=== PATIENT | female | born 1975 | race Caucasian/White ===

== ENCOUNTER 2019-03-09 13:37 | Emergency (ER) | payer OTHER ==
[2019-03-09] MEDS ORDERED: EPINEPHRINE 1 MG/ML 1 ML VIAL IM ONE (13:43)
[2019-03-09] MEDS ORDERED: Famotidine IV* 10 MG/ML 2 ML (20 mg) IV SLOW PU ONE (13:44)
[2019-03-09] MEDS ORDERED: NS 0.9% 1000 ML** 1,000 ML IV ONE (13:44)
[2019-03-09] MEDS ORDERED: methylPREDNISolone 125 MG* 2 ML VIAL IV ONE (13:44)
[2019-03-09 13:46] VITALS: BP 139/61
--- NOTE | 2019-03-09 13:46 | UC ---
Allergic Reaction HPI - HPI Summary HPI Summary: Patient is a 44-year-old female here with a possible allergic reaction. Patient was stung by a wasp one hour ago. Since then, patient's had worsening rash is itchy on her legs and face. Patient has some difficulty breathing. Patient has no sensation of her throat closing, vomiting, diarrhea. Patient of an anaphylaxis before. medications reviewed - History of Current Complaint Stated Complaint: ALLERGIC REACTION Time Seen by Provider: 03/09/19 13:43 Hx Obtained From: Patient Onset/Duration: Sudden Onset - Allergies/Home Medications Allergies/Adverse Reactions: Allergies Allergy/AdvReac Type Severity Reaction Status Date / Time erythromycin base Allergy Nausea Verified 03/09/19 13:47 bandaid Allergy Rash Uncoded 03/09/19 13:47 wasp Allergy Rash Uncoded 03/09/19 13:47 Home Medications: Home Medications Magnesium Oxide [Magnesium] 500 mg PO DAILY 03/09/19 [History Confirmed 03/09/19 ] Nortriptyline CAP* [Pamelor CAP*] 50 mg PO BEDTIME 03/09/19 [History Confirmed 03/09/19] Ondansetron ODT TAB* [Zofran 4 MG Odt TAB*] 8 mg PO Q6H PRN 03/09/19 [History Confirmed 03/09/19] Propranolol TAB* [Inderal TAB*] 220 mg PO BID 03/09/19 [History Confirmed ] Temazepam 7.5 mg Cap (Nf) [Temazepam] 5 mg PO DAILY PRN 03/09/19 [History Confirmed 03/09/19] PMH/Surg Hx/FS Hx/Imm Hx Previously Healthy: Yes - Family History Known Family History: Positive: Non-Contributory - Social History Occupation: Employed Full-time Alcohol Use: None Substance Use Type: None Smoking Status (MU): Never Smoked Tobacco Review of Systems All Other Systems Reviewed And Are Negative: Yes Constitutional: Negative: Fever, Chills ENT: Negative: Sore Throat, Nasal Discharge Respiratory: Positive: Shortness Of Breath Cardiovascular: Negative: Palpitations, Chest Pain Gastrointestinal: Negative: Abdominal Pain, Vomiting, Diarrhea Physical Exam - Summary Physical Exam Summary: Vital Signs Reviewed: Yes A+Ox3, no distress Eyes: Conjunctiva Clear, PERRL. EOM intact and full ENT: Hearing grossly normal TM x 2 clear, moist, uvula midline, no exudate, no erythema Neck: Positive: Supple. No stridor Respiratory: Positive: No respiratory distress, No accessory muscle use + CTA throughout no w/r Cardiovascular: RRR nl s1, s2 no m/r CBT <2 sec abd soft + BS nt/nd no guarding, no distension Musculoskeletal Exam: SOTELO x 4 without difficulty Strength Intact, ROM Intact Neurological: Positive: Alert, + sensation throughout Psychological: Positive: Normal Response To Family Skin: Diffuse urticaria worse on the right lower extremity and the face Triage Information Reviewed: Yes Allergic Reaction Course/Dx - Course Course Of Treatment: Patient is here with anaphylaxis following a wasp sting. Patient had diffuse urticaria and was complaining of shortness of breath. Patient was given epinephrine here and [facility] is called. Patient was given Pepcid, Solu-Medrol, IV fluids while the ambulance arrived. Patient was taken to the ED for further management - Differential Dx/Diagnosis Differential Diagnosis/HQI/PQRI: Airway Obstruction, Anaphylaxis, Angioedema, Local Allergic Reaction, Urticaria Provider Diagnosis: Anaphylaxis Discharge - Sign-Out/Discharge Documenting (check all that apply): Patient Departure All imaging exams completed and their final reports reviewed: No Studies - Discharge Plan Condition: Stable Disposition: TRANS HIGHER LVL OF CARE FAC Referrals: No Primary Care Phys,NOPCP [Primary Care Provider] - - Billing Disposition and Condition Condition: STABLE Disposition: Trans Higher Lvl of Care Fac
== END 2019-03-09 14:00 | disposition short-term general hospital (02) ==
LOC: UCEAST 13:37
DX: T63.441A Toxic effect of venom of bees, accidental (unintentional), initial encounter (principal); T78.2XXA Anaphylactic shock, unspecified, initial encounter; Y92.9 Unspecified place or not applicable
CPT/HCPCS: 96360; 96361; 96372; 96374; 96376; 99213; G0463; J2930

== ENCOUNTER 2019-03-09 14:22 | Emergency (ER) | payer OTHER ==
[2019-03-09] MEDS ORDERED: NS 0.9% 1000 ML** 1,000 ML IV ONE (14:44)
[2019-03-09] MEDS ORDERED: diPHENhydraMINE IV* 50 MG/ML 1 ml VIAL (BENADRYL) IV ONE (14:44)
[2019-03-09] MEDS ORDERED: Ketorolac INJ* 30 MG/ML 1 ML VIAL IV PUSH ONE (14:52)
[2019-03-09 15:40] VITALS: BP 115/65
--- NOTE | 2019-03-09 16:51 | ED ---
Allergic Reaction/Systemic - HPI Summary HPI Summary: 44 year old F patient brought to [facility] by EMS with a chief complaint of allergic reaction to bee sting one hour ago today, 03/09/19. Patient reports she was jogging when she got stung on her right lower leg by a wasp. Patient reports wheezing, sore throat, and itching when she presented to Urgent Care who gave her Decadron, Epinephrine injection, and Benadryl. Patient reports to feel better now. Pt denies any fever, chills, erythema of eyes, CP, SOB, cough, abdominal pain, N /V, dysuria, hematuria, myalgia, edema, rash, or dizziness. - History of Current Complaint Chief Complaint: EDAllergicReaction Time Seen by Provider: 03/09/19 14:28 Hx Obtained From: Patient Hx Last Menstrual Period: IUD Pain Intensity: 2 Aggravating Factor(s): Nothing Alleviating Factor(s): OTC Meds - Benadryl & decadron, Epinephrine Associated Signs And Symptoms: Positive: Cough Wheezing, Other: - reports sore throat and itching; Pt denies any fever, chills, erythema of eyes, SOB, dysuria, hematuria, myalgia, edema, or dizziness.. Negative: Abdominal Pain, Chest Pain, Nausea, Rash, Vomiting - Allergies/Home Medications Allergies/Adverse Reactions: Allergies Allergy/AdvReac Type Severity Reaction Status Date / Time erythromycin base Allergy Nausea Verified 03/09/19 13:47 bandaid Allergy Rash Uncoded 03/09/19 13:47 wasp Allergy Rash Uncoded 03/09/19 13:47 PMH/Surg Hx/FS Hx/Imm Hx - Surgical History Surgery Procedure, Year, and Place: [facility] Infectious Disease History: No Infectious Disease History: Denies: Traveled Outside the [place] in Last 30 Days - Social History Alcohol Use: Occasionally Hx Substance Use: No Substance Use Type: Reports: None Hx Tobacco Use: No Smoking Status (MU): Never Smoked Tobacco Review of Systems Negative: Fever Negative: Erythema Positive: Sore Throat Negative: Chest Pain Positive: Other - wheezing. Negative: Shortness Of Breath, Cough Negative: Abdominal Pain, Vomiting, Nausea Negative: dysuria, hematuria Negative: Myalgia, Edema Positive: Other - itchy Neurological: Other - denies dizziness All Other Systems Reviewed And Are Negative: Yes Physical Exam - Summary Physical Exam Summary: Constitutional: Well-developed, Well-nourished, Alert. (-) Distressed Skin: silver dollar size erythema over on right lower leg, no strider, and no angioedema HENT: Normocephalic; Atraumatic Eyes: Conjunctiva normal Neck: Musculoskeletal ROM normal neck. (-) JVD, (-) Stridor, (-) Tracheal deviation Cardio: Rhythm regular, rate normal, Heart sounds normal; Intact distal pulses; The pedal pulses are 2+ and symmetric. Radial pulses are 2+ and symmetric. (-) Murmur Pulmonary/Chest wall: Effort normal. (-) Respiratory distress, (-) Wheezes, (-) Rales Abd: Soft, (-) tenderness, (-) Distension, (-) Guarding, (-) Rebound Musculoskeletal: (-) Edema Lymph: (-) Cervical adenopathy Neuro: Alert, Oriented x3 Psych: Mood and affect Normal Triage Information Reviewed: Yes Vital Signs On Initial Exam: Initial Vitals Temp Pulse Resp BP Pulse Ox 97.6 F 68 18 138/87 97 03/09/19 14:25 03/09/19 14:25 03/09/19 14:25 03/09/19 14:25 03/09/19 14:25 Vital Signs Reviewed: Yes Diagnostics - Vital Signs Vital Signs Temp Pulse Resp BP Pulse Ox 03/09/19 15:29 69 16 115/65 97 03/09/19 15:00 68 22 98 03/09/19 14:29 68 138/87 99 03/09/19 14:28 65 96 03/09/19 14:25 97.6 F 68 18 138/87 97 - Laboratory Lab Statement: Any lab studies that have been ordered have been reviewed, and results considered in the medical decision making process. Allergic Reaction Course/Dx - Course Course Of Treatment: 44 year old F patient brought to [facility] by EMS with a chief complaint of bee sting one hour ago today, 03/09/19. Patient reports she was jogging when she got stung on her right lower leg by a wasp. Patient reports wheezing, sore throat, and itching when she presented to Urgent Care who gave her Decadron, Epinephrine injection, and Benadryl. Patient reports to feel better now. Pt denies any fever, chills, erythema of eyes, CP, SOB, cough, abdominal pain, N/V, dysuria, hematuria, myalgia, edema, rash, or dizziness. Physical exam reveals no abnormalities except for silver dollar size erythema over on right lower leg, no strider, and no angioedema. Patient was given 25 mg diphenhydramine hcl IV, 30 mg ketorolac tromethamine IV, and saline in the ED. Physician discusses discharge with patient whoa greed to discharge. Patient will be discharged and will follow up with primary care provider within 2-3 days. - Diagnoses Provider Diagnoses: Anaphylactic reaction Discharge - Sign-Out/Discharge Documenting (check all that apply): Patient Departure - discharge Patient Received Moderate/Deep Sedation with Procedure: No - Discharge Plan Condition: Stable Disposition: HOME Prescriptions: EPINEPHrine [Epipen 2-Nikunj] 0.3 mg IM ONCE PRN #2 inj PRN Reason: Allergy Symptoms predniSONE TAB* [Deltasone 20 MG TAB*] 20 mg PO DAILY #3 tab Patient Education Materials: Anaphylaxis (ED) Referrals: [facility] [Outside] - 3 Days Additional Instructions: Follow up with primary care provider within 2-3 days. Use Epi pen if another anaphylactic reaction occurs. Return to ED for any new or worsening symptoms. - Attestation Statements Document Initiated by Scribe: Yes Documenting Scribe: Ellie Morales Provider For Whom Scribe is Documenting (Include Credential): Dr. Haroon Gonzalez MD Scribe Attestation: Ellie Fair, scribed for Dr. Haroon Gonzalez MD on 03/10/19 at 0106. Status of Scribe Document: Ready
== END 2019-03-09 17:04 | disposition home or self-care (01) ==
LOC: ED 14:22
DX: T63.441A Toxic effect of venom of bees, accidental (unintentional), initial encounter (principal); T78.2XXA Anaphylactic shock, unspecified, initial encounter; X58.XXXA Exposure to other specified factors, initial encounter; Z88.1 Allergy status to other antibiotic agents; Z91.030 Bee allergy status; Z91.048 Other nonmedicinal substance allergy status
CPT/HCPCS: 96361; 96374; 96375; 99282; J1200; J1885

== ENCOUNTER 2019-07-13 13:44 | Emergency (ER) | payer OTHER ==
--- NOTE | 2019-07-13 14:22 | ED ---
Throat Pain/Nasal Congestion - HPI Summary HPI Summary: This pt is a 44 y/o female, with PMHx eosinophilic esophagitis, presenting to [facility] via EMS for inability to swallow since midnight after trying to take a pill. Pt reports she was dx with eosinophilic esophagitis 10 years ago that was found as an incidental finding. Pt states for the past few months she has been getting food stuck in her throat whenever she tried to eat something. She notes she would produce mucous, then she would vomit and feel better afterwards. She reports last night she was trying to take a pill, that was bigger than her usual pills, when it got stuck in her throat while swallowing. She states she has been unable to swallow since then and has not had any PO fluids. Pt has been spitting up her secretions in a bottle. Denies fever, chest pain, SOB, nausea, vomiting. PMHx: migraine, vertigo. - History of Current Complaint Chief Complaint: EDThroatPain Time Seen by Provider: 07/13/19 14:11 Hx Obtained From: Patient Onset/Duration: Lasting Hours, Still Present Severity: Moderate Associated Signs And Symptoms: Positive: Dysphagia Cough: None Related History: Other (Noted In Comments) - hx of eosinophilic esophagitis - Allergies/Home Medications Allergies/Adverse Reactions: Allergies Allergy/AdvReac Type Severity Reaction Status Date / Time banana Allergy Swelling Verified 07/13/19 14:43 Of Face,Lips,& Throat erythromycin base Allergy Nausea Verified 07/13/19 14:43 nickel Allergy Rash Verified 07/13/19 14:43 bandaid Allergy Rash Uncoded 07/13/19 14:43 wasp Allergy Rash Uncoded 07/13/19 14:43 Home Medications: Home Medications Melatonin (NF) 3 mg PO BEDTIME PRN 07/13/19 [History Confirmed 07/13/19] Ondansetron ODT TAB* [Zofran 4 MG Odt TAB*] 8 mg PO DAILY 07/13/19 [History Confirmed 07/13/19] Propranolol LA CAP* [Inderal LA CAP*] 160 mg PO DAILY 07/13/19 [History Confirmed 07/13/19] Rizatriptan (NF) [Maxalt-Solution Maker (NF)] 10 mg PO ONCE PRN 07/13/19 [History Confirmed 07/13/19] PMH/Surg Hx/FS Hx/Imm Hx GI History: Reports: Other GI Disorders - eosinophilic esophagitis Neurological History: Reports: Hx Migraine, Other Neuro Impairments/Disorders - vertigo - Surgical History Surgical History: Yes Surgery Procedure, Year, and Place: lap cholecystectomy Infectious Disease History: No Infectious Disease History: Denies: Traveled Outside the [place] in Last 30 Days - Family History Known Family History: Negative: Cardiac Disease, Hypertension, Diabetes - Social History Alcohol Use: Occasionally Hx Substance Use: No Substance Use Type: Reports: None Hx Tobacco Use: No Smoking Status (MU): Never Smoked Tobacco Review of Systems Negative: Fever ENT: Other - POSITIVE: dysphagia, spitting up secretions Negative: Chest Pain Negative: Shortness Of Breath Negative: Vomiting, Nausea All Other Systems Reviewed And Are Negative: Yes Physical Exam - Summary Physical Exam Summary: VITAL SIGNS: Reviewed. GENERAL: Patient is a well-developed and nourished female who is lying comfortable in the stretcher. Patient is not in any acute respiratory distress. HEAD AND FACE: No signs of trauma. No ecchymosis, hematomas or skull depressions. No sinus tenderness. EYES: PERRLA, EOMI x 2, No injected conjunctiva, no nystagmus. EARS: Hearing grossly intact. Ear canals and tympanic membranes are within normal limits. MOUTH: Oropharynx within normal limits. Spitting up secretions. NECK: Supple, trachea is midline, no adenopathy, no JVD, no carotid bruit, no c- spine tenderness, neck with full ROM. CHEST: Symmetric, no tenderness at palpation. LUNGS: Clear to auscultation bilaterally. No wheezing or crackles. CVS: Regular rate and rhythm, S1 and S2 present, no murmurs or gallops appreciated. ABDOMEN: Soft, non-tender. No signs of distention. No rebound, no guarding, and no masses palpated. Bowel sounds are normal. EXTREMITIES: FROM in all major joints, no edema, no cyanosis or clubbing. NEURO: Alert and oriented x 3. No acute neurological deficits. Speech is normal and follows commands. SKIN: Dry and warm. Triage Information Reviewed: Yes Vital Signs On Initial Exam: Initial Vitals Temp Pulse Resp BP Pulse Ox 98.8 F 81 20 142/82 100 07/13/19 13:46 07/13/19 13:46 07/13/19 13:46 07/13/19 13:46 07/13/19 13:46 Vital Signs Reviewed: Yes Procedures - Sedation Patient Received Moderate/Deep Sedation with Procedure: No Diagnostics - Vital Signs Vital Signs Temp Pulse Resp BP Pulse Ox 07/13/19 13:46 98.8 F 81 20 142/82 100 - Laboratory Lab Statement: Any lab studies that have been ordered have been reviewed, and results considered in the medical decision making process. Re-Evaluation - Re-Evaluation First Eval Re-Evaluation Time: 16:15 Change: Improved Comment: Dr. Neves reports pt has swallowed the foreign body. He recommends discharge with outpatient follow up with her GI in [place]. EENT Course/Dx - Course Assessment/Plan: This pt is a 44 y/o female, with PMHx eosinophilic esophagitis , presenting to [facility] via EMS for inability to swallow since midnight after trying to take a pill. Pt reports she was dx with eosinophilic esophagitis 10 years ago that was found as an incidental finding. Pt states for the past few months she has been getting food stuck in her throat whenever she tried to eat something. She notes she would produce mucous, then she would vomit and feel better afterwards. She reports last night she was trying to take a pill, that was bigger than her usual pills, when it got stuck in her throat while swallowing. She states she has been unable to swallow since then and has not had any PO fluids. Pt has been spitting up her secretions in a bottle. Denies fever, chest pain, SOB, nausea, vomiting. PMHx: migraine, vertigo. I discussed the case with Dr. Neves from GI who came and assessed the patient. While he was talking to the patient the patient felt that she passed the foreign body. At this time Dr. Neves requests for the patient to be discharged home with follow-up from her GI doctor at [place]. Patient is able to drink water without any difficulty. Patient will be discharged home with follow-up from her primary care physician and GI. - Diagnoses Provider Diagnoses: FB esophagus - Provider Notifications Discussed Care Of Patient With: Pascual Neves Time Discussed With Above Provider: 14:28 Instructed by Provider To: Other - Discussed the case with Dr. Neves, GI, who will come see pt in the ED. Discharge ED - Sign-Out/Discharge Documenting (check all that apply): Patient Departure - Discharge home - Discharge Plan Condition: Stable Disposition: HOME Patient Education Materials: Esophageal Foreign Body (ED) Referrals: Palmira Gallardo MD [Primary Care Provider] - Additional Instructions: Follow up with your primary care provider in [place] tomorrow as scheduled. RETURN TO THE ED FOR ANY WORSENING OR NEW SYMPTOMS. - Billing Disposition and Condition Condition: STABLE Disposition: Home - Attestation Statements Document Initiated by Scribe: Yes Documenting Scribe: Emerald Moreno Provider For Whom Scribe is Documenting (Include Credential): Dariel Tejada MD Scribe Attestation: Emerald Fair, scribed for Dariel Tejada MD on 07/13/19 at 2126. Scribe Documentation Reviewed: Yes Provider Attestation: The documentation as recorded by the Emerald monroe accurately reflects the service I personally performed and the decisions made by , Dariel Tejada MD Status of Scribe Document: Viewed
[2019-07-13] MEDS ORDERED: Midazolam* 1 MG/ML 10 ML VIAL (10 MG) ONE (15:27)
[2019-07-13] MEDS ORDERED: fentaNYL* 50 MCG/ML 2 ML VIAL (100 MCG VIAL) ONE (15:27)
[2019-07-13] MEDS ORDERED: NS 0.9% 1000 ML** 1,000 ML IV ONE (15:28)
--- NOTE | 2019-07-13 17:01 | CONS ---
CC: [facility] * CONSULTATION REPORT: DATE OF CONSULT: 07/13/19 REQUESTING PHYSICIAN: Emergency room staff. INDICATION: Esophageal foreign body, history of eosinophilic esophagitis. 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 She was diagnosed with EOE back in 2008. She really has not had many swallowing difficulties especially at that time; however, the over the past 2 years she has noticed that she has had difficulty with pill dysphagia. She states that there is a specific brand of Advil that always gets stuck; however, off-brand Advil she seems to be able to swallow fine. She has noticed over the past year worsening dysphagia to solids, never to liquids. She states usually it is harder foods such as dry breads and meat. She has never had to regurgitate her food. She has never had to force vomiting. She states that last night she was developing a migraine and took one of her typical migraine medications which she was able to swallow fine, then she took a melatonin tablet in order to sleep and it felt like that became stuck. This was at approximately midnight to 1 a.m. She was unable to swallow liquids and by midafternoon today she decided to come to the emergency room. When she presented to the emergency room, she was drooling, she was unable to swallow any liquids at that time. I was called and when I came down and while interviewing the patient, she stated it felt like the pill became dislodged. At that time, she was given water to drink and she was able to swallow water at that time. Currently, I did watch her drink 2 glasses of water. She denies any chest pain. She does have a strange lump-like sensation in her throat currently that was not there prior to the pill becoming stuck. She denies any difficulty breathing. PAST MEDICAL HISTORY: Significant for migraines. PAST SURGICAL HISTORY: Includes a lap tere. MEDICATIONS: Include: 1. Melatonin. 2. Zomig. ALLERGIES: ERYTHROMYCIN. FAMILY HISTORY: Significant for asthma, but no esophageal issues. REVIEW OF SYSTEMS: Twelve systems were reviewed and other than that mentioned in the HPI were unremarkable. PHYSICAL EXAM: Temperature is 98.8, blood pressure is 133/85, pulse is 72, O2 sat is 100%. General: Well-appearing female, in no apparent distress, alert, oriented, pleasant, fluent. HEENT: Mucous membranes are moist without lesions , ulcers, or exudate. Neck is supple. Trachea is midline. Head is normocephalic, atraumatic. Heart: Regular rate and rhythm, no murmur. Lungs: Clear to auscultation, no WRR. Abdomen: Positive bowel sounds. Soft, nontender, nondistended. No hepatosplenomegaly, masses, rebound, or guarding. Skin: warm and dry. Psych: normal affect, good insight DIAGNOSTIC STUDIES/LAB DATA: Of note, the emergency room did not obtain any labs. Radiology data: No radiology data to report. ASSESSMENT AND PLAN: This is a 44-year-old female with a history of eosinophilic esophagitis dating back to 10 years ago. She presented with an esophageal foreign body potentially a pill, which would be unlikely; however, while interviewing her, the pill seemed to clear and she is now able to swallow liquids. I had a long discussion with her regarding eosinophilic esophagitis and treatment. I offered her an outpatient evaluation and recommended an EGD. She tells me that she already has an appointment scheduled with the [facility] nurse practitioner tomorrow and she will follow up with them. [id number]/[facility] #: [id number] [facility] CENTERDelon
[2019-07-13 17:04] VITALS: BP 131/81
== END 2019-07-13 17:03 | disposition home or self-care (01) ==
LOC: ED 13:44
DX: T18.198A Other foreign object in esophagus causing other injury, initial encounter (principal); X58.XXXA Exposure to other specified factors, initial encounter; Y92.9 Unspecified place or not applicable; Z90.49 Acquired absence of other specified parts of digestive tract; Z79.899 Other long term (current) drug therapy; Z88.1 Allergy status to other antibiotic agents
CPT/HCPCS: 96360; 99201; 99285; G0463; J2250; J3010